=== PATIENT | female | born 1950 | race Caucasian/White ===

== ENCOUNTER → 2016-09-12 | Outpatient (CLI) | payer OTHER ==
--- NOTE | 2016-09-12 13:21 | CT ---
HISTORY: 66-year-old male with pulmonary fibrosis Study: High-resolution CT chest without contrast Comparison: High-resolution CT chest August 06, 2015 Technique: Multiple axial images of the chest were obtained from the thoracic inlet to the upper abd omen without the administration of IV contrast. Additional thin slice high-resolution CT images were also obtained. Dose reduction techniques including Automated Exposure Control (AEC) and adjustment of mA and kV were utilized. Findings: There is mild lower lobe predominant peripheral reticulation, appearing stable since the prior exami [facility]. Mild associated traction bronchiectasis within the bilateral lower lobes also appears simila r. Otherwise, no worsening interstitial thickening, honeycombing or air trapping is appreciated. Sub centimeter nodule within the right lower lobe (image 32, series 3) appears stable, given differences in slice thickness. Remainder of the lungs appear clear without focal consolidation or suspicious p ulmonary nodule/mass. There is no appreciable pleural effusion. Mild coronary atherosclerotic disease is present. The heart size is normal without pericardial effus ion. No pathologic intrathoracic or axillary adenopathy is seen. The trachea and mainstem bronchi ar e patent/normal. Previously seen hepatic steatosis has improved/resolved. The visualized upper abdomen is otherwise n ormal. Mild degenerative changes throughout the thoracic spine are again noted. No acute or suspicio us osseous abnormality is identified. IMPRESSION: Stable lower lobe predominant peripheral reticulation and traction bronchiectasis, again suggestive of fibrosis, possibly UIP given distribution. Otherwise, no evidence of zuhair honeycombing or focal pneumonia. Reported By:
== END ==
LOC: RAD 09:50
PROVIDERS: ATTEND Internal Medicine Critical Care Medicine
DX: J84.10 Pulmonary fibrosis, unspecified (principal)
CPT/HCPCS: 71250

== ENCOUNTER 2016-11-01 00:51 | Emergency (ER) | payer OTHER ==
[2016-11-01 00:57] VITALS: BP 140/66; BMI 29.2
[2016-11-01] MEDS ORDERED: NS 1000 ML 1,000 ML ONE (00:59)
[2016-11-01] MEDS ORDERED: TORADOL 30 MG VIAL ONE (00:59)
[2016-11-01] MEDS ORDERED: ZOFRAN INJ 4 MG VIAL ONE (01:00)
[2016-11-01] MEDS ORDERED: ZOFRAN INJ 4 MG VIAL IVP ONE (01:05)
[2016-11-01] MEDS ORDERED: TORADOL 30 MG VIAL IVP ONE (01:05)
[2016-11-01] MEDS ORDERED: NS 1000 ML 1,000 ML IV ONE (01:05)
--- NOTE | 2016-11-01 01:07 | DR.GENAD ---
HPI - PCP Primary Care Physician: ELVER - HPI Comment HPI Comment: PAIN RADIATE FROM BACK TO GENITAL AREA. NO VAGINAL DISCHARGE. - Complaint/Symptoms Chief Complaint Doctors Comments: LOWER BACK PAIN Chief Complaint:: PT STATES" I WOKE UP WITH PAIN IN MY BACK THAT GOES AROUND TOO MY LABIA ANDMY RECTUM I FEEL LIKE I NEED TOO PEE BUT I CAN'T " - Nurses notes reviewed Nurses Notes Review: Yes - Source History Provided: Patient - Mode of Arrival Mode of Arrival: Ambulatory - Timing Onset of Chief Complaint: 11/01/16 Came on: Suddenly - Duration Duration: Constant Duration: Hours - Severity Severity: Moderate PMH - PMH Past Medical History: Yes Past Medical History Comment: FIBROMYALGIA Past Surgical History: Yes Past Surgical History Comment: BACK - Family History History of Family Medical Conditions: No - Social History Does any household member use tobacco: No Alcohol Use: None Do you use any recreational Drugs:: No Lives With: Family Lives Where: Home - infectious screening In the last 2 months have you had wt loss of >10#?: NO Have you had fever, night sweats or hemotysis?: No Have you traveled outside the country in the last 6 months?: No Isolation: Standard ROS - Review of Systems Constitutional: No Symptoms Reported Eyes: No Symptoms Reported ENTM: No Symptoms Reported Respiratoy: No Symptoms Reported Cardiovascular: No Symptoms Reported Gastrointestinal/Abdominal: No Symptoms Reported Genitourinary: No Symptoms Reported Neurological: No Symptoms Reported Musculoskeletal: Back Pain, Back Integumentary: No Symptoms Reported Hematologic/Lymphatic: No Symptoms Reported Endocrine: No Symptoms Reported All Other Systems: Reviewed and Negative PE - Vital Signs Vitals: Temperature 97.5 F Pulse Rate 59 Respiratory Rate 18 Blood Pressure 140/66 O2 Sat by Pulse Oximetry 98 - General Limitations: No Limitations General Appearance: Alert - Head Head Exam: Normal Inspection - Eyes Eye exam: Normal Appearance - ENT ENT Exam: Normal External Ear Exam External Ear Exam: Normal External Inspection TM/Canal Exam: Bilateral Normal Nose Exam: Normal Nose Exam Mouth Exam: Normal Inspection Throat Exam: Normal Inspection - Neck Neck Exam: Trachea Midline - Chest Chest Inspection: Symmetric Chest Wall Rise - Respiratory Respiratory Exam: Normal Lung Sounds Bilat Respiratory Exam: Bilateral Clear to Auscultation - Cardiovascular Cardiovascular Exam: Regular Rate, Normal Rhythm, Normal Heart Sounds - Abdominal Exam Abdominal Exam: Normal Bowel Sounds, Soft. negative: Tenderness - Extremities Extremities Exam: Normal Inspection - Back Back Exam: Vertebral Tenderness (LUMBAR AREA.) - Neurologic Neurological Exam: Alert, Oriented X3 - Psychiatric Psychiatric Exam: Normal Affect, Normal Mood - Skin Skin Exam: Normal Color MDM - Differential Diagnosis Differential Diagnosis: BACK PAIN, KIDNEY STONE, UTI Course - Treatment Treatment: SEE ORDERS - Education/Counseling Education/Counseling: Patient, Family, Education Educated On: Treatment, Diagnosis ROR - Labs Reviewed Laboratory Results Reviewed?: Yes Result Diagrams: 11/01/16 01:15 11/01/16 01:15 Laboratory: WBC 8.4 X10^3/uL (3.6-10.0) 11/01/16 01:15 RBC 4.22 X10^6/uL (3.5-5.4) 11/01/16 01:15 Hgb 13.5 g/dL (12.0-16.0) 11/01/16 01:15 Hct 39.4 % (36.0-47.0) 11/01/16 01:15 MCV 93.3 fL (80.0-100.0) 11/01/16 01:15 MCH 32.1 pg (27.0-34.0) 11/01/16 01:15 MCHC 34.4 g/dL (33.0-35.0) 11/01/16 01:15 RDW 13.4 % (11.6-16.5) 11/01/16 01:15 Plt Count 210 X10^3/uL (150.0-450.0) 11/01/16 01:15 MPV 7.5 fL (7.4-11.0) 11/01/16 01:15 Neut % 64.1 % (42.0-75.0) 11/01/16 01:15 Lymph % 26.3 % (21.0-51.0) 11/01/16 01:15 [place] % 7.5 % (0.0-13.0) 11/01/16 01:15 Eos % 1.3 % (0.9-2.9) 11/01/16 01:15 Baso % 0.8 % (0.2-1.0) 11/01/16 01:15 Neut # 5.4 x10^3/uL (2.2-4.8) H 11/01/16 01:15 Lymph # 2.2 X10^3/uL (1.3-2.9) 11/01/16 01:15 [place] # 0.6 x10^3/uL (0.3-0.8) 11/01/16 01:15 Eos # 0.1 x10^3/uL (0.0-0.2) 11/01/16 01:15 Baso # 0.1 X10^3/uL (0.0-0.1) 11/01/16 01:15 Absolute Nucleated RBC 0.0 /100WBC 11/01/16 01:15 Sodium 146 mmol/L (136-145) H 11/01/16 01:15 Corrected Sodium 147 mmol/L (136-145) H 11/01/16 01:15 Potassium 4.1 mmol/L (3.5-5.1) 11/01/16 01:15 Chloride 108 mmol/L (98-107) H 11/01/16 01:15 Carbon Dioxide 26.2 mmol/L (21-32) 11/01/16 01:15 BUN 14 mg/dL (7-18) 11/01/16 01:15 Creatinine 0.98 mg/dL (0.55-1.02) 11/01/16 01:15 Est GFR (MDRD) Af Amer > 60 (>60) 11/01/16 01:15 Est GFR (MDRD) Non-Af > 60 (>60) 11/01/16 01:15 Glucose 131 mg/dL (65-99) H 11/01/16 01:15 Calcium 8.6 mg/dL (8.5-10.1) 11/01/16 01:15 Corrected Calcium TNP 11/01/16 01:15 Total Bilirubin 0.20 mg/dL (0.2-1.0) 11/01/16 01:15 AST 35 Units/L (15-37) 11/01/16 01:15 ALT 43 Units/L (12-78) 11/01/16 01:15 Alkaline Phosphatase 85 Units/L (46-116) 11/01/16 01:15 Total Protein 7.2 g/dL (6.4-8.2) 11/01/16 01:15 Albumin 3.6 g/dL (3.4-5.0) 11/01/16 01:15 Globulin 3.6 g/dL (2.5-4.5) 11/01/16 01:15 Albumin/Globulin Ratio 1.0 Ratio (1.1-2.1) L 11/01/16 01:15 Specimen Type Clean catch urine 11/01/16 01:50 Urine Color Yellow (YELLOW) 11/01/16 01:50 Urine Appearance Clear (CLEAR) 11/01/16 01:50 Urine pH 5.0 (5.0 - 8.0) 11/01/16 01:50 Ur Specific [place] 1.025 (1.000-1.030) 11/01/16 01:50 Urine Protein 1+ (NEGATIVE) 11/01/16 01:50 Urine Glucose (UA) Negative (NEGATIVE) 11/01/16 01:50 Urine Ketones Negative (NEGATIVE) 11/01/16 01:50 Urine Occult Blood 5+ (NEGATIVE) 11/01/16 01:50 Urine Nitrite Negative (NEGATIVE) 11/01/16 01:50 Urine Bilirubin Negative (NEGATIVE) 11/01/16 01:50 Urine Urobilinogen Normal (NORMAL) 11/01/16 01:50 Ur Leukocyte Esterase Negative (NEGATIVE) 11/01/16 01:50 Urine RBC 15-20 /HPF (NEGATIVE) 11/01/16 01:50 Urine WBC 0-2 /HPF (NEGATIVE) 11/01/16 01:50 Ur Squamous Epith Cells Rare /HPF (NEGATIVE) 11/01/16 01:50 Urine Bacteria Trace /HPF (NEGATIVE) 11/01/16 01:50 Ur Culture Indicated? No/not indicated 11/01/16 01:50 - XRAY XRAY Findings: REPORT DISCUSS WITH PATIENT. - Diagnosis Discharge Problem: Kidney stone Back pain Qualifiers: Back pain location: low back pain Chronicity: acute Back pain laterality: bilateral Sciatica presence: without sciatica Qualified Code(s): M54.5 - Low back pain - Discharge Plan Disposition: HOME, SELF-CARE Condition: Stable Prescriptions: Hydrocodone-Acet 5 mg/325 mg [[place] 5/325 mg Tab] 1 tab PO Q6H PRN #15 tab PRN Reason: Pain Ketorolac Tromethamine [Toradol Tab] 10 mg PO Q8H PRN #15 tab PRN Reason: Pain Tamsulosin HCl [Flomax] 0.4 mg PO DAILY #10 cap - Follow ups/Referrals Follow ups/Referrals: ELIANE RAYA [Primary Care Provider] - 3 days - Instructions Instructions: Kidney Stones, [id number] Additional Instructions: RETURN TO ED IF WORSE. FOLLOW UP UROLOGIST THIS AM.
[2016-11-01] MEDS ORDERED: MORPHINE SULFATE INJ 4 MG ONE (01:11)
[2016-11-01] MEDS ORDERED: MORPHINE SULFATE INJ 4 MG IVP ONE (01:11)
[2016-11-01 01:22] LABS: BASOPHILS # (AUTO) 0.1 X10^3/uL (0.0-0.1); BASOPHILS % (AUTO) 0.8 % (0.2-1.0); EOSINOPHILS # (AUTO) 0.1 x10^3/uL (0.0-0.2); EOSINOPHILS % (AUTO) 1.3 % (0.9-2.9); HEMATOCRIT 39.4 % (36.0-47.0); HEMOGLOBIN 13.5 g/dL (12.0-16.0); LYMPHOCYTES # (AUTO) 2.2 X10^3/uL (1.3-2.9); LYMPHOCYTES % (AUTO) 26.3 % (21.0-51.0); MEAN CORPUSCULAR HEMOGLOBIN 32.1 pg (27.0-34.0); MEAN CORPUSCULAR HGB CONC 34.4 g/dL (33.0-35.0); MEAN CORPUSCULAR VOLUME 93.3 fL (80.0-100.0); MEAN PLATELET VOLUME 7.5 fL (7.4-11.0); MONOCYTES # (AUTO) 0.6 x10^3/uL (0.3-0.8); MONOCYTES % (AUTO) 7.5 % (0.0-13.0); NEUTROPHILS # (AUTO) 5.4 x10^3/uL (2.2-4.8); NEUTROPHILS % (AUTO) 64.1 % (42.0-75.0); PLATELET COUNT 210 X10^3/uL (150.0-450.0); RED BLOOD COUNT 4.22 X10^6/uL (3.5-5.4); RED CELL DISTRIBUTION WIDTH 13.4 % (11.6-16.5); WHITE BLOOD COUNT 8.4 X10^3/uL (3.6-10.0)
[2016-11-01 01:35] LABS: ALANINE AMINOTRANSFERASE 43 Units/L (12-78); ALBUMIN 3.6 g/dL (3.4-5.0); ALKALINE PHOSPHATASE 85 Units/L (46-116); ASPARTATE AMINO TRANSFERASE 35 Units/L (15-37); BLOOD UREA NITROGEN 14 mg/dL (7-18); CALCIUM 8.6 mg/dL (8.5-10.1); CARBON DIOXIDE 26.2 mmol/L (21-32); CHLORIDE 108 mmol/L (98-107); COR NA(FOR HYPERGLY) 147 mmol/L (136-145); CREATININE 0.98 mg/dL (0.55-1.02); GLUCOSE 131 mg/dL (65-99); SODIUM 146 mmol/L (136-145); TOTAL PROTEIN 7.2 g/dL (6.4-8.2); eGFR BLACK RACES > 60 (>60); eGFR NON BLACK RACES > 60 (>60)
[2016-11-01 02:00] LABS: BILIRUBIN,URINE NEGATIVE (NEGATIVE); BLOOD/HEMOGLOBIN,URINE 5+ (NEGATIVE); GLUCOSE, URINE NEGATIVE (NEGATIVE); KETONES,URINE NEGATIVE (NEGATIVE); LEUKOCYTE ESTERASE ,URINE NEGATIVE (NEGATIVE); NITRITES,URINE NEGATIVE (NEGATIVE); PROTEIN,URINE 1+ (NEGATIVE); UROBILINOGEN,URINE NORMAL (NORMAL)
[2016-11-01 02:06] LABS: APPEARANCE,URINE CLEAR (CLEAR); COLOR,URINE YELLOW (YELLOW)
[2016-11-01 02:07] LABS: BACTERIA,URINE TRACE /HPF (NEGATIVE); RBC,URINE 15-20 /HPF (NEGATIVE); SQUAMOUS EPITHELIAL CELL,UR RARE /HPF (NEGATIVE)
--- NOTE | 2016-11-01 02:57 | CT ---
CT abdomen and pelvis without contrast Indication: Left flank pain Comparison: None available Technique: Multiple axial images of the abdomen and pelvis were obtained from the lung bases to the pubic symphy sis without the administration of IV contrast. Coronal and sagittal images were also provided. Radiation dose reduction techniques were performed utilizing adjustment for MA/kVP based on patient body size. Findings: There is increased reticulation within the periphery of both lungs consistent with chronic interstiti al lung disease. No bronchiectasis focal airspace opacity or pleural effusion. The bony structures ar e grossly intact. previous posterior fixation at L5-S1 is noted without evidence for hardware looseni ng or failure. Given the limitations of lack of IV contrast administration the liver, gallbladder, spleen, pancreas, and adrenal glands are unremarkable in their CT appearance. The right kidney contains an approximate 1 mm stone within its lower pole. No right-sided hydronephro sis or mass. The left kidney contains an approximate 2 mm stone within its upper pole. There is mild hydroureteronephrosis on the left secondary to an approximate 3 mm stone within the left UVJ on axial image 78. No bowel wall thickening or bowel dilatation is present. The colon and rectum are unremarkable. The urinary bladder is grossly unremarkable. Small fat containing periumbilical hernia. Previous hystere ctomy is noted. No mesenteric lymphadenopathy or stranding can be observed. No free fluid or free air is seen within the abdomen. IMPRESSION: 1. An approximate 3 mm stone within the left UVJ causes mild left hydroureteronephrosis. 2. Punctate bilateral nonobstructing nephrolithiasis. 3. Refer to above for other incidental findings. Reported By:
[2016-11-01] MEDS ORDERED: FLOMAX PO ONE (03:40)
== END 2016-11-01 03:54 | disposition home or self-care (01) ==
LOC: ER 00:51
DX: N20.0 Calculus of kidney (principal); M54.5 Low back pain
CPT/HCPCS: 36415; 74176; 80053; 81001; 85025; 96365; 96367; 96374; 96375; 99283; A4222; J1885; J2270; J2405